=== PATIENT | male | born 1970 | race Caucasian/White ===

== ENCOUNTER → 2018-01-25 | Emergency (ER) | payer OTHER ==
[~2018-01-25] VITALS: Ht 175.3 cm; Wt 95.3 kg
[~2018-01-25] MED LIST: CIPRO500 MG PO; FLAGYL500MG PO; PERCOCET 5/3251 TAB PO; TESSALON PERLE100 MG PO; TUSSIONEX PENNKI5 ML PO; ZESTRIL10 MG
== END | disposition home or self-care (01) ==
LOC: ER 14:16
DX: R51 Headache (principal)

== ENCOUNTER 2018-03-25 12:30 | Outpatient (CLI) | payer OTHER | END 2018-03-25 12:34 | disposition home or self-care (01) | LOC: RAD 12:30 | DX: M25.561 Pain in right knee (principal); M25.562 Pain in left knee; R06.02 Shortness of breath ==

== ENCOUNTER 2018-07-14 09:00 | Outpatient (CLI) | payer OTHER | END 2018-07-14 09:06 | disposition home or self-care (01) | LOC: TOM 09:00 | DX: R10.84 Generalized abdominal pain (principal); K57.32 Diverticulitis of large intestine without perforation or abscess without bleeding; R19.4 Change in bowel habit ==

== ENCOUNTER 2018-12-02 06:10 | Day surgery (SDC) | payer OTHER | END 2018-12-02 10:20 | disposition home or self-care (01) | LOC: AMB-ENDOS 06:10 | DX: D12.2 Benign neoplasm of ascending colon (principal); K64.8 Other hemorrhoids ==

== ENCOUNTER 2019-05-02 10:04 | Outpatient (CLI) | payer OTHER ==
[~2019-05-02] VITALS: Ht 167.6 cm; Wt 86.2 kg
== END 2019-05-02 10:20 | disposition home or self-care (01) ==
LOC: OFIC 805 10:04
DX: H93.13 Tinnitus, bilateral (principal); H91.90 Unspecified hearing loss, unspecified ear

== ENCOUNTER → 2019-12-12 | Outpatient (CLI) | payer OTHER | END | disposition home or self-care (01) | LOC: MAMO-SONO 12-11 08:15 → SONOGRAMA 12-11 11:20 | DX: R10.84 Generalized abdominal pain (principal); G47.00 Insomnia, unspecified; I11.9 Hypertensive heart disease without heart failure; E78.49 Other hyperlipidemia; E03.8 Other specified hypothyroidism; N40.0 Benign prostatic hyperplasia without lower urinary tract symptoms; K57.30 Diverticulosis of large intestine without perforation or abscess without bleeding ==

== ENCOUNTER 2021-04-11 09:20 | Outpatient (CLI) | payer OTHER | END 2021-04-11 09:39 | disposition home or self-care (01) | LOC: SONOGRAMA 09:20 → MAMO-SONO 10:00 | PROVIDERS: ATTEND Specialist | DX: R10.9 Unspecified abdominal pain (principal); I11.9 Hypertensive heart disease without heart failure; E78.49 Other hyperlipidemia; E03.8 Other specified hypothyroidism; N40.0 Benign prostatic hyperplasia without lower urinary tract symptoms; K57.30 Diverticulosis of large intestine without perforation or abscess without bleeding ==

== ENCOUNTER → 2021-06-28 16:04 | Outpatient (CLI) | payer OTHER | END | disposition home or self-care (01) | LOC: RAD 16:04 | DX: N20.0 Calculus of kidney (principal) ==

== ENCOUNTER 2022-07-05 08:12 | Outpatient (CLI) | payer OTHER | END 2022-07-05 08:37 | disposition home or self-care (01) | LOC: TOM 08:12 | PROVIDERS: ATTEND Specialist | DX: R10.9 Unspecified abdominal pain (principal); I11.9 Hypertensive heart disease without heart failure; E78.5 Hyperlipidemia, unspecified; E03.8 Other specified hypothyroidism; N40.0 Benign prostatic hyperplasia without lower urinary tract symptoms; K57.30 Diverticulosis of large intestine without perforation or abscess without bleeding ==

== ENCOUNTER 2023-01-08 09:51 | Outpatient (CLI) | payer OTHER | END 2023-01-08 09:54 | disposition home or self-care (01) | LOC: NUCLEAR 09:51 | PROVIDERS: ATTEND Internal Medicine Cardiovascular Disease | DX: R42 Dizziness and giddiness (principal) ==

== ENCOUNTER 2023-08-23 15:29 | Outpatient (CLI) | payer OTHER | END 2023-08-23 15:36 | disposition home or self-care (01) | LOC: RAD 15:29 | PROVIDERS: ATTEND Specialist | DX: R10.9 Unspecified abdominal pain (principal); I11.9 Hypertensive heart disease without heart failure; E78.5 Hyperlipidemia, unspecified; E03.8 Other specified hypothyroidism; N40.0 Benign prostatic hyperplasia without lower urinary tract symptoms; K57.30 Diverticulosis of large intestine without perforation or abscess without bleeding ==

== ENCOUNTER 2024-02-17 10:24 | Outpatient (CLI) | payer OTHER | END 2024-02-17 10:26 | disposition home or self-care (01) | LOC: NUCLEAR 10:24 | PROVIDERS: ATTEND Internal Medicine Nephrology | DX: N18.32 Chronic kidney disease, stage 3b (principal) ==

== ENCOUNTER 2024-09-02 10:09 | Outpatient (CLI) | payer OTHER | END 2024-09-02 10:20 | disposition home or self-care (01) | LOC: RAD 10:09 | PROVIDERS: ATTEND Orthopaedic Surgery | DX: M25.562 Pain in left knee (principal) ==

== ENCOUNTER 2024-09-15 10:12 | Outpatient (CLI) | payer OTHER | END 2024-09-15 10:20 | disposition home or self-care (01) | LOC: MRI 10:12 | PROVIDERS: ATTEND Orthopaedic Surgery | DX: M25.562 Pain in left knee (principal); M23.92 Unspecified internal derangement of left knee | CPT/HCPCS: 73721 ==